=== PATIENT | female | born 2005 | race Caucasian/White ===

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

== ENCOUNTER 2024-04-26 06:57 | Inpatient (IN) | payer BC, OTHER ==
[~2024-04-26] VITALS: Ht 160 cm; Wt 90.0 kg
[2024-04-26] VITALS (36 sets, daily range): BP systolic 83–135; BP diastolic 46–72
[2024-04-26] MEDS ORDERED: FentaNYL 2mcg/ml-Bup 0.1% Epd 250 ML EPI PRN (07:40)
[2024-04-26] MEDS ORDERED: Lactated Ringer's 1,000 ML IV PRN (07:40)
[2024-04-26] MEDS ORDERED: Bupivacaine HCl 2.5 MG/ML 10ML P/F Injection XX SCH (07:40)
[2024-04-26] MEDS ORDERED: Misoprostol 200 MCG Tab PR SCH (07:40)
[2024-04-26] MEDS ORDERED: Bupivacaine 0.5% HCl 5 MG/ML 30MLVIAL XX SCH (07:40)
[2024-04-26] MEDS ORDERED: Oxytocin 10 Unit / ML Vial IM SCH (07:40)
[2024-04-26] MEDS ORDERED: OXYTOCIN/RINGER'S LACTATE 500 ML IV SCH ×3 (07:40→23:00)
[2024-04-26] MEDS ORDERED: ePHEDrine Sulfate 50 MG/ML 1ML Injection XX PRN (07:40)
[2024-04-26] MEDS ORDERED: Methylergonovine Maleate 0.2MG / ML 1ML Amp IM SCH (07:40)
[2024-04-26] MEDS ORDERED: Lidocaine HCl 1% 30 ML SDV XX SCH (07:40)
[2024-04-26] MEDS ORDERED: Castor Oil 59.146 ML BTL TOP SCH (07:40)
[2024-04-26] MEDS ORDERED: Lactated Ringer's 1,000 ML IV SCH ×4 (07:40→23:00)
[2024-04-26] MEDS ORDERED: PRENATAL TABLE1 EAC2 PO (07:44)
[2024-04-26] MEDS ORDERED: IRON FOLATE PL1 EACH PO (07:44)
[2024-04-26 07:55] LABS: BASOPHILS ABSOLUTE AUTO 0.04 K/mm3 (0.00-0.23); BASOPHILS PERCENT AUTO 0 % (0-2); EOSINOPHILS PERCENT AUTO 4 % (0-6); Hematocrit 37.9 % (33.0-51.0); Hemoglobin 13.1 g/dL (11.5-16.0); IMMATURE GRAN PERCENT AUTO 1 % (0-1); LYMPHOCYTES ABSOLUTE AUTO 2.62 K/mm3 (0.84-5.20); LYMPHOCYTES PERCENT AUTO 20 % (21-46); MONOCYTES ABSOLUTE AUTO 1.07 K/mm3 (0.16-1.47); MONOCYTES PERCENT AUTO 8 % (4-13); Mean Corpuscular HGB 30.2 pg (26.0-34.0); Mean Corpuscular HGB Conc 34.6 g/dL (31.5-36.5); Mean Corpuscular Volume 87 fL (80-100); Mean Platelet Volume 12.1 fL (9.1-12.4); NEUTROPHILS ABSOLUTE AUTO 8.72 K/mm3 (1.96-9.15); NEUTROPHILS PERCENT AUTO 67 % (41-73); Platelet Count 139 K/mm3 (150-400); RDW Coefficient Variation 14.4 % (11.7-14.2); RDW Standard Deviation 46.4 fL (35.1-46.3); Red Blood Cell Count 4.34 M/mm3 (3.80-5.20); White Blood Cell Count 13.05 K/mm3 (4.00-11.30)
[2024-04-26] MEDS ORDERED: Misoprostol 25 MCG Tab VAG PRN (08:35)
[2024-04-26] MEDS ORDERED: FentaNYL Citrate 50 MCG/ML 2 ML Injection ONE (16:05)
[2024-04-26] MEDS ORDERED: Ibuprofen 400 MG Tab PO PRN (22:55)
[2024-04-26] MEDS ORDERED: Benzocaine Topical Anesthetic Spray 60GM TOP PRN (22:55)
[2024-04-26] MEDS ORDERED: Witch Hazel/Glycerin PADS TOP PRN (22:55)
[2024-04-26] MEDS ORDERED: Docusate Sodium 100 MG Cap PO PRN (22:55)
[2024-04-26] MEDS ORDERED: Acetaminophen 325 MG TABLET PO PRN (23:00)
[2024-04-26] MEDS ORDERED: Ketorolac Tromethamine 30mg Vial IV SCH (23:00)
[2024-04-26] MEDS ORDERED: Misoprostol 200 MCG Tab PR PRN (23:00)
[2024-04-26] MEDS ORDERED: Methylergonovine Maleate 0.2MG / ML 1ML Amp IM PRN (23:00)
[2024-04-26] MEDS ORDERED: Lanolin Cream TOP PRN (23:00)
[2024-04-27] VITALS (10 sets, daily range): BP systolic 105–128; BP diastolic 55–69
[2024-04-27 06:39] LABS: BASOPHILS ABSOLUTE AUTO 0.03 K/mm3 (0.00-0.23); BASOPHILS PERCENT AUTO 0 % (0-2); EOSINOPHILS ABSOLUTE AUTO 0.24 K/mm3 (0.00-0.68); EOSINOPHILS PERCENT AUTO 1 % (0-6); Hematocrit 32.3 % (33.0-51.0); Hemoglobin 11.1 g/dL (11.5-16.0); IMMATURE GRAN ABSOLUTE AUTO 0.11 K/mm3 (0.00-0.10); IMMATURE GRAN PERCENT AUTO 1 % (0-1); LYMPHOCYTES ABSOLUTE AUTO 2.29 K/mm3 (0.84-5.20); LYMPHOCYTES PERCENT AUTO 14 % (21-46); MONOCYTES ABSOLUTE AUTO 1.46 K/mm3 (0.16-1.47); MONOCYTES PERCENT AUTO 9 % (4-13); Mean Corpuscular HGB 30.3 pg (26.0-34.0); Mean Corpuscular HGB Conc 34.4 g/dL (31.5-36.5); Mean Corpuscular Volume 88 fL (80-100); Mean Platelet Volume 12.1 fL (9.1-12.4); NEUTROPHILS ABSOLUTE AUTO 12.62 K/mm3 (1.96-9.15); NEUTROPHILS PERCENT AUTO 75 % (41-73); Platelet Count 137 K/mm3 (150-400); RDW Coefficient Variation 14.6 % (11.7-14.2); RDW Standard Deviation 47.5 fL (35.1-46.3); Red Blood Cell Count 3.66 M/mm3 (3.80-5.20); White Blood Cell Count 16.75 K/mm3 (4.00-11.30)
[2024-04-27] MEDS ORDERED: Prenatal Vit/FE Fumarate/FA 1 Tab PO SCH (09:00)
--- NOTE | 2024-04-27 21:36 | NUR ---
DISCHARGE TEACHING COMPLETED FOR MOTHER AND BABE. ALL QUESTIONS ANSWERED. PATIENT AWARE OF EMERGENT SITUATIONS AND WHEN TO SEEK MEDICAL ATTENTION FOR HERSELF OR BABE. PATIENT AWARE OF ALL FOLLOW UP APPOINTMENTS.
[2024-04-28 00:05] VITALS: BP 112/57
--- NOTE | 2024-04-28 00:30 | NUR ---
AT 0010 - NUT CRACKER ESCORTED PATIENT, PARTNER, AND BABE TO VEHICLE WHERE PARTNER PLACED CAR SEAT WITH BABE INTO BASE IN VEHICLE.
== END 2024-04-28 00:18 | disposition home or self-care (01) | DRG 807 ==
LOC: OBS 06:57 → BC 07:02 → OBS 07:12 → BC 07:15
PROVIDERS: ADMIT Obstetrics & Gynecology
PROC: 00HU33Z Insertion of Infusion Device into Spinal Canal, Percutaneous Approach (ICD-10-PCS; principal; 2024-04-26)
PROC: 3E0R3BZ Introduction of Anesthetic Agent into Spinal Canal, Percutaneous Approach (ICD-10-PCS; principal; 2024-04-26)
PROC: 10E0XZZ Delivery of Products of Conception, External Approach (ICD-10-PCS; principal; 2024-04-26)
DX: O80 Encounter for full-term uncomplicated delivery (principal); Z37.0 Single live birth; Z3A.39 39 weeks gestation of pregnancy
CPT/HCPCS: 36415; 51702; 85025; 86850; 86900; 86901; A9270; J1885; J2210; J2590; J7120